=== PATIENT | male | born 1975 | race African-American/Black ===

== ENCOUNTER 2016-11-04 04:15 | Emergency (ER) | payer SELFPAY ==
[~2016-11-04] VITALS: Ht 180.3 cm; Wt 92.1 kg
[2016-11-04 04:39] VITALS: BP 167/103
[2016-11-04] MEDS ORDERED: LIDOCAINE 1%/EPI 1:100,000 20 ML VIAL. INJ ONE (05:00)
[2016-11-04] MEDS ORDERED: SULF1TAB24 PO (05:07)
[2016-11-04] MEDS ORDERED: OXYC-323 PO (05:07)
--- NOTE | 2016-11-04 05:10 | PHYS DOC ---
Past Medical History Past Medical History: Hypertension Past Surgical History: No Surgical History Alcohol Use: Occasionally Drug Use: Marijuana Adult General Chief Complaint Chief Complaint: SKIN RASH/ABSCESS HPI HPI Patient is a 40 year old male presenting to the emergency department for evaluation of right forearm abscess first noted several days ago. He says that he has been getting more abscesses since sharing a truck with other people. 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 Patient denies any fevers chills nausea vomiting or other systemic symptoms. Review of Systems Review of Systems Constitutional: Denies fever or chills [] GI: Denies abdominal pain, nausea, vomiting, bloody stools or diarrhea [] Musculoskeletal: Denies back pain or joint pain [] Integument: Denies rash. + skin lesions [] Neurologic: Denies headache, focal weakness or sensory changes [] Current Medications Current Medications Current Medications Medications (Trade) Dose Ordered Sig/[place] Start Time Stop Time Status Last Admin Dose Admin Lidocaine/ Epinephrine (Xylocaine 1%-Epi 1:100,000) 20 ml 1X ONCE 11/04/16 05:00 11/04/16 05:01 DC Allergies Allergies Allergies Coded Allergies Type Severity Reaction Last Updated Verified No Known Drug Allergies 11/04/16 No Physical Exam Physical Exam Constitutional: Well developed, well nourished, no acute distress, non-toxic appearance. [] Cardiovascular:Heart rate regular rhythm, no murmur [] Lungs & Thorax: Bilateral breath sounds clear to auscultation [] Abdomen: Bowel sounds normal, soft, no tenderness, no masses, no pulsatile masses. [] Skin: Warm, dry. Right forearm with approximately 2 x 3 cm abscess with surrounding 5 x 6 cm cellulitis Neurologic: Alert and oriented X 3, normal motor function, normal sensory function, no focal deficits noted. [] Current Patient Data Vital Signs Vital Signs Date Time Temp Pulse Resp B/P Pulse Ox O2 Delivery O2 Flow Rate FiO2 11/04/16 04:39 98.4 80 18 97 Room Air 98.4 EKG EKG [] Radiology/Procedures Radiology/Procedures Right forearm injected with 5 mL 1% lidocaine with epinephrine and then approximately 1.5 cm incision was made with 11 blade, moderate amount of purulent drainage. Wound was fairly deep and probed and then irrigated with saline and packed with gauze. No complications patient tolerated procedure well. Course & Med Decision Making Course & Med Decision Making Patient with relatively deep abscess on incision and drainage. I told him it would be best to follow with the general surgeon however if he cannot get in to come back to the ER in 2 days for a wound recheck. Patient aware and agreeable with plan for discharge and verbalized understanding of the need for short-term follow-up district ER return precautions discussed, worsening pain fever vomiting or vaginal concerns. Dragon Disclaimer Dragon Disclaimer This electronic medical record was generated, in whole or in part, using a voice recognition dictation system. Departure Departure Impression: Primary Impression: Abscess of forearm, left Disposition: HOME, SELF-CARE Condition: GOOD Referrals: MALISSA DHILLON MD Patient Instructions: Abscess, Care After Scripts Oxycodone/Apap 5-325 (Percocet 5-325 Mg Tablet)1 Each Tablet1 Tab PO PRN Q6HRS PRN PAIN #20 TAB Ref 0 Prov:BRITTON DONALDSON DO 11/04/16 Sulfamethoxazole/Trimethoprim (Bactrim Ds Tablet)1 Each Tablet1 Tab PO BID #14 TAB Prov:BRITTON DONALDSON DO 11/04/16 BRITTON DONALDSON DO November 04, 2016 05:10
== END 2016-11-04 05:15 | disposition home or self-care (01) ==
LOC: ER 04:15
DX: L02.415 Cutaneous abscess of right lower limb (principal); I10 Essential (primary) hypertension; F12.10 Cannabis abuse, uncomplicated
CPT/HCPCS: 10060; 99283; J3490